=== PATIENT | male | born 1970 | race Caucasian/White ===

== ENCOUNTER 2023-01-02 10:57 | Outpatient (CLI) | payer OTHER ==
[~2023-01-02 10:57] MED LIST: AVALIDE 300-251 TAB PO; GLUCOTROL10 MG PO
== END 2023-01-02 11:09 | disposition home or self-care (01) ==
LOC: MRI 10:57
PROVIDERS: ATTEND Anesthesiology
DX: M54.59 Other low back pain (principal)
CPT/HCPCS: 72148

== ENCOUNTER → 2023-05-15 09:58 | Outpatient (CLI) | payer OTHER | END | disposition home or self-care (01) | LOC: LAB 09:58 | PROVIDERS: ATTEND Internal Medicine Gastroenterology | DX: R10.13 Epigastric pain (principal) ==

== ENCOUNTER 2023-05-15 10:58 | Outpatient (CLI) | payer OTHER | END 2023-05-15 11:05 | disposition home or self-care (01) | LOC: SONOGRAMA 10:58 | PROVIDERS: ATTEND Internal Medicine Gastroenterology | DX: R10.13 Epigastric pain (principal) ==

== ENCOUNTER → 2023-05-20 07:30 | Outpatient (CLI) | payer OTHER | END | disposition home or self-care (01) | LOC: LAB 07:30 | PROVIDERS: ATTEND Internal Medicine Gastroenterology | DX: Z11.52 Encounter for screening for COVID-19 (principal); Z20.822 Contact with and (suspected) exposure to COVID-19; Z20.828 Contact with and (suspected) exposure to other viral communicable diseases ==

== ENCOUNTER 2023-07-24 10:27 | Outpatient (CLI) | payer OTHER ==
[2023-07-24 12:26] LABS: CALCIUM 8.9 mg/dL (8.5-10.1); CREATININE SERUM 0.79 mg/dL (0.70-1.30); GFR 102.21; POTASSIUM 3.72 mEq/L (3.5-5.1)
== END 2023-07-24 10:37 | disposition home or self-care (01) ==
LOC: LAB 10:27
PROVIDERS: ATTEND Internal Medicine Gastroenterology
DX: Z01.812 Encounter for preprocedural laboratory examination (principal); R10.9 Unspecified abdominal pain

== ENCOUNTER 2023-09-29 10:24 | Outpatient (CLI) | payer OTHER | END 2023-09-29 10:34 | disposition home or self-care (01) | LOC: RAD 10:24 | DX: M48.26 Kissing spine, lumbar region (principal) ==